=== PATIENT | male | born 1990 ===

== ENCOUNTER 2025-02-28 21:58 | Emergency (ER) | payer SELFPAY ==
[2025-02-28 22:01] VITALS: BMI 29.8
--- NOTE | 2025-02-28 22:31 | XR_ITS ---
Examination: AP lateral soft tissue neck 2 views Technique one AP lateral soft tissue neck 2 views Exam date and time: February 28, 2025 1108 hrs. Indications: Swollen second and third today. Findings: Mild soft tissue tonsillar prominence Mild thickening of the epiglottis. No opaque foreign body No prevertebral soft tissue prominence Intact bone Impression: No opaque foreign body visualized
--- NOTE | 2025-02-28 22:32 | EDNOTE_ITS ---
ED Dental RME/HPI General Chief complaint: Dental/Oral/Throat Stated complaint: FISH BONE STUCK IN THROAT Time Seen by Provider: 02/28/25 22:17 Arrival date/time: 02/28/25 21:58 RME / HPI RME / HPI Narrative: 34-year-old male patient was brought in by family for evaluation regarding possible fishbone stuck in the throat patient was eating tilapia fish today and a piece of bone got stuck right side of the throat, no vomiting no shortness of breath noted patient complaining of discomfort severity mild. Able to swallow without any difficulty. Incident happened several hours prior to ER visit. Related Data Previous Rx's ?Medication ?Instructions ?Recorded ibuprofen 800 mg tablet 800 mg PO Q8H PRN pain #30 t abs 02/28/25 Allergies Allergy/AdvReac Type Severity Reaction Status Date / Time No Known Allergies Allergy Verified 02/28/25 22:00 Review of Systems Review of Systems Narrative Review of Systems: Review of system reviewed and within normal limits except mentioned in HPI ED Exam Narrative Physical exam: VITAL SIGNS: Reviewed. GENERAL APPEARANCE: Alert and interactive, follows commands, no acute distress, HEAD AND FACE: Non-traumatic. ENT: PERRL, pink conjunctivitis, eyelid no trauma, Mucous membrane moist., I did not notice any fishbone stuck on the oral mucosa. NECK: Supple, nontender, no nuchal rigidity. CHEST: No tenderness, no crepitus, no paradoxical movement, no retractions. LUNGS: Clear, well ventilated, symmetric, no rales, no wheezing, no ronchi, no stridor, good breath sounds bilaterally. HEART: Regular rate, regular rhythm, no murmur, no gallops. ABDOMEN: Soft, positive bowel sounds, nondistended, no guarding, nontender, no rebound, no masses, RECTAL: Deferred. GENITAL: Deferred. NEUROLOGICAL: Gross motor function intact sensory function intact, Appropriate for age. MUSCULOSKELETAL: low back nontender, full range of motion. EXTREMITIES: Nontender, full range of motion. SKIN: Color pink, dry, no rash, no lacerations, no abrasions, no contusions. LYMPHATICS: Deferred. Course Quality Measures none Orders Category Date Time Status XR soft tissue neck Stat Exams 02/28/25 22:31 Ordered Vital Signs Vital signs: Vital Signs Temperature 98.4 F 02/28/25 23:13 Pulse Rate 79 02/28/25 23:13 Respiratory Rate 18 02/28/25 23:13 Blood Pressure 161/90 H 02/28/25 23:13 Pulse Oximetry (%) 97 02/28/25 23:13 Oxygen Delivery Method Room Air 02/28/25 23:13 Dental / Oral MDM Narrative MDM Narrative:: 34-year-old male patient was brought in by family for evaluation regarding possible fishbone stuck in the throat patient was eating tilapia fish today and a piece of bone got stuck right side of the throat, no vomiting no shortness of breath noted patient complaining of discomfort severity mild. Able to swallow without any difficulty. Incident happened several hours prior to ER visit. Multiple reevaluation on the throat, I cannot visualize/ I do not see any fish bone in the throat area or oral mucosa. X-ray of the neck soft tissue also is negative for any foreign body. Patient was advised to return to emergency room for worsening of symptoms, fever, neck swelling, or difficulty swallowing. Patient data External records reviewed:: None Clinical information provided by:: patient Social determinants that could affect healthcare access:: none Patient has the following chronic illnesses:: None How is presenting disease/condition affected by chronic disease/condition?: no chronic disease Evaluation data The following diagnostics were reviewed and interpreted by me:: radiology exam(s) Lab and/or radiology exams considered but not ordered:: None Interpretation Summary: None Medications / Prescriptions Medications or Prescriptions considered but not ordered:: None Medication administrations:: None Consultations Consultation(s) initiated? (list below): No Diagnosis Dental Differential Diagnosis: other (Foreign body sensation in throat, fishbone stuck in the throat, abrasions throat) Most likely diagnosis given after review of the tests above:: Foreign body sensations throat Admission Indicated Admission indicated?: not indicated Admission Request Was there a request for admission?: No Disposition Plan Disposition Plan: Discharge Discharge Attestation Discharge Attestation: The patient and all family members were given an opportunity to ask questions and understood the discharge instructions. Discharge instructions specifically effects, indications for sooner follow up or return to the emergency department, and the expected course of current diagnosis. Patient condition: Stable Discharge Plan Plan Patient Disposition: HOME (Self Care) Disposition Comment: Stable Prescriptions/Referrals Prescriptions/Med Rec: New ibuprofen 800 mg tablet 800 mg PO Q8H PRN (Reason: pain) Qty: 30 0RF Problem List Clinical Impression: Foreign body sensation, throat Patient/Caregiver Discharge Instructions Discharge Activity: activity as tolerated Education Materials: ED Swallowed Foreign Body (Adult) Additional Instructions: Thank you for the opportunity for serving you today. You are stable for discharged . You are advised to: Follow-up with your PCP in 1 to 2 days Return to ED for worsening of symptoms, fever, difficulty swallowing Increase oral fluids Take medication as prescribed Print Language: Citizen Of [place] Stand Alone Forms: Kateryna Award Info., Patient Portal Info Letter PA/COAL GRADER Supervising Physician PA/COAL GRADER Supervising Physician: MD Emma
[2025-02-28 23:13] VITALS: BP 161/90; PULSE 79; RESP 18; TEMP 36.9; O2SAT 97
--- NOTE | 2025-02-28 23:25 | PC.NURSE ---
N/A FROM [facility]
--- NOTE | 2025-02-28 23:37 | PC.NURSE ---
N/A FROM [facility]
== END 2025-02-28 23:38 | disposition home or self-care (01) ==
LOC: SERX 23:44
PROVIDERS: Emergency Provider Emergency Medicine
DX: T17.228A Food in pharynx causing other injury, initial encounter (principal); W44.9XXA Unspecified foreign body entering into or through a natural orifice, initial encounter
CPT/HCPCS: 70360; 99283